=== PATIENT | female | born 1990 | race Caucasian/White ===

== ENCOUNTER → 2018-05-23 16:48 | Outpatient (CLI) | payer OTHER, SELFPAY ==
[2018-05-23 21:18] LABS: Chlamydia Trachomatis by PCR Negative (Negative); Neisserai gonorrhoeae by PCR Negative (Negative); Probe Check PASS; Sample Adequacy Control PASS; Specimen Processing Control PASS
== END ==
PROVIDERS: Visit Provider Obstetrics & Gynecology
DX: Z11.3 Encounter for screening for infections with a predominantly sexual mode of transmission (principal)
CPT/HCPCS: 87491; 87591

== ENCOUNTER 2018-12-09 04:00 | Inpatient (IN) | payer BC, SELFPAY ==
[2018-12-09 03:51] VITALS: BMI 26.4
[2018-12-09] MEDS: 0.9% Saline Lock 10 ML Syringe IV ×2 (04:15→06:55)
[2018-12-09] MEDS: Lactated Ringers 1,000 ML 50 ML IV (04:15)
[2018-12-09 04:39] LABS: Mean Corp Hgb Conc 31.6 g/gl (32-36); Mean Corpuscular Hgb 26.8 pg (27.0-32.0); Mean Platelet Vol. 9.9 fl (6.2-12.0); Platelet Count 182 K/mm3 (150-450); RBC Distribution Width CV 17.8 % (11.6-14.6); RBC Distribution Width SD 55.4 fl (35.1-43.9); Red Blood Count 4.47 M/mm3 (4.2-5.4); Scan Indicated on CBC? Y/N NO; White Blood Count 8.8 K/mm3 (4.4-11.0)
[2018-12-09] MEDS: Oxytocin 30 units/NS 500 ml 30 UNITS/500 ML IV.SOLN 334 UNITS IV (05:23)
--- NOTE | 2018-12-09 05:28 | PCM.OB.VAG ---
Vaginal Delivery Maternal Presentation: Active Labor 39 4/7 wk labor IBOW Amniotic Membrane Rupture Type: Artificial Amniotic Fluid Description: Clear Final CAROLYN: 12/12/18 Final CAROLYN Source: US <20 weeks Gestational age: 39 Weeks and 4 Days Date of Procedure: 12/09/18 Pre-Operative Diagnosis: 39 4/7 wk labor Post-Operative Diagnosis: Same Surgery/ Procedure Performed: Spontaneous Vaginal Delivery Description of Procedure: of a lamas viable female over intact perineum. Head delivered DOROTHY. no nuchal cord Shoulders delivered easily. OP and nares bulb suctioned on abdomen. Short umbical cord noted. Cord clamped x two and cut to allow better skin to skin. Routine cord blood for typing collected. PP exam; 1st deg posterior vaginal laceration, hemostatic. no repair Placenta delivered by spont expulsion, 3v cord, normal appearing and intact with trailing membranes EBL 200 Ray Kai counts correct x two. Presentation: Vertex, DOROTHY Placental Delivery Description: Spontaneous Placenta Disposition: [facility] Cord Vessel Description: 3 Vessels Cord Entanglement: None Estimated Blood Loss: 200 A gender: Female (1 minute): 8 (5 minute): 9 Episiotomy Description: None Laceration: Midline, Vaginal Extension/lac, 1st degree - no repair required Medications given after delivery: IV Pitocin Complications: None
--- NOTE | 2018-12-09 05:33 | PCM.DCVAG ---
Discharge Diet: No Restrictions Discharge Activity: May Shower, May Take a Tub Bath May resume sexual activity in: 4-6 weeks Additional Activity Instructions:: Nothing in the vagina for 4-6 weeks. You may return to work/school in 6 weeks. Additional Instructions: If you experience any of the following, contact your healthcare provider. Bleeding that soaks a pad every hour for 2 hours Fever 100.4 or higher Unrelieved abdominal pain Problems urinating (including inability to urinate or burning while urinating). Visual changes Severe headache Flu-like symptoms Pain or redness in one of both of your breasts Pain, warmth, tenderness or swelling in your legs, especially the calf area Frequent nausea and vomiting Symptoms of depression or anxiety If you experience any of the following, call 911 or go to the nearest Emergency Room. Chest pain Problems breathing Seizure activity Partial or complete paralysis of a body part, slurred speech, weakness or drooping of the face, or a sudden inability to walk or hold your balance Allergies/Adverse Reactions: Allergies pedisol Allergy (Unknown, Uncoded 12/09/18 03:44) Unknown Medications to take at Discharge Levothyroxine [Synthroid] 1 tab PO DAILY 10/12/16 Atenolol 25 mg PO DAILY 12/09/18 Ferrous Sulfate 325 mg PO DAILY 12/09/18 Gummies 2 gum PO DAILY 12/09/18 Please Follow Up With: Mae Alba MD - [phone] When: Call to make an appointment with your doctor in 6 weeks. Test Results: Test results from this visit will be discussed in further detail at your follow-up appointment, if applicable. Proposed Discharge Date: 12/10/18
--- NOTE | 2018-12-09 05:34 | DCINST_ITS ---
Discharge Diet: No Restrictions Discharge Activity: May Shower, May Take a Tub Bath May resume sexual activity in: 4-6 weeks Additional Activity Instructions:: Nothing in the vagina for 4-6 weeks. You may return to work/school in 6 weeks. Additional Instructions: If you experience any of the following, contact your healthcare provider. * Bleeding that soaks a pad every hour for 2 hours * Fever 100.4 or higher * Unrelieved abdominal pain * Problems urinating (including inability to urinate or burning while urinating). * Visual changes * Severe headache * Flu-like symptoms * Pain or redness in one of both of your breasts * Pain, warmth, tenderness or swelling in your legs, especially the calf area * Frequent nausea and vomiting * Symptoms of depression or anxiety If you experience any of the following, call 911 or go to the nearest Emergency Room. * Chest pain * Problems breathing * Seizure activity * Partial or complete paralysis of a body part, slurred speech, weakness or drooping of the face, or a sudden inability to walk or hold your balance Allergies/Adverse Reactions: Allergies pedisol Allergy (Unknown, Uncoded 12/09/18 03:44) Unknown Medications to take at Discharge Levothyroxine [Synthroid] 1 tab PO DAILY 10/12/16 Atenolol 25 mg PO DAILY 12/09/18 Ferrous Sulfate 325 mg PO DAILY 12/09/18 Gummies 2 gum PO DAILY 12/09/18 Please Follow Up With: Mae Alba MD - [phone] When: Call to make an appointment with your doctor in 6 weeks. Test Results: Test results from this visit will be discussed in further detail at your follow- up appointment, if applicable. Proposed Discharge Date: 12/10/18
[2018-12-09] MEDS: Oxytocin 30 units/NS 500 ml 30 UNITS/500 ML IV.SOLN 167 UNITS IV (05:53)
[2018-12-09] MEDS: Levothyroxine 75 MCG Tablet PO (07:15)
[2018-12-09 07:45] VITALS: BP 114/71; PULSE 82; RESP 18; TEMP 36.6; O2SAT 98
[2018-12-09 12:00] VITALS: BP 99/55; PULSE 94; RESP 16; TEMP 37.2; O2SAT 97
[2018-12-09] MEDS: Ibuprofen 600 MG Tablet PO ×2 (13:03→20:33)
[2018-12-09] MEDS: Prenatal Vits Tablet 1 TABLET PO (13:04)
[2018-12-09 16:00] VITALS: BP 113/70; PULSE 84; RESP 18; TEMP 36.6; O2SAT 98
[2018-12-09 20:25] VITALS: BP 105/59; PULSE 95; RESP 18; TEMP 37
[2018-12-09 23:48] VITALS: BP 120/66; PULSE 104; RESP 16; TEMP 36.6; O2SAT 97
[2018-12-10 05:00] VITALS: BP 121/73; PULSE 98; RESP 16; TEMP 36.8
[2018-12-10] MEDS: Levothyroxine 75 MCG Tablet PO (06:27)
[2018-12-10] MEDS: Ibuprofen 600 MG Tablet PO (06:30)
[2018-12-10 07:29] VITALS: BP 119/75; PULSE 102; RESP 16; TEMP 36.9
--- NOTE | 2018-12-10 07:53 | PCM.PN.OB ---
Subjective: PPD#1 GBS neg Doing well. Nursing. would like to go home today. no concerns voiced. Objective: Sitting up in bed, legs crossed and baby on bed. Attempting to wake baby to nurse - Physical Exam General: Alert, Oriented x3, Cooperative, No apparent distress HEENT: Atraumatic, EOMI Neck: Supple Psych/Mental Status: Normal Affect Vital Signs Temp Pulse Resp BP Pulse Ox 98.4 F 102 H 16 119/75 97 12/10/18 07:29 12/10/18 07:29 12/10/18 07:29 12/10/18 07:29 12/09/18 23:48 Oxygen Delivery Method Room Air Weight: 76.657 kg Body Mass Index (BMI) 26.4 Intake and Output for Last 24 Hours 12/08/18 12/09/18 12/10/18 23:59 23:59 23:59 Output Total 1200 / 1200 Balance -1200 / -1200 Medical Necessity - Tobacco Use Smoking Status: Former smoker Assessment/Plan PPD#1 Stable pp. Dischg home per pt request. RTO in 6 wk for pp check, prn sooner.
--- NOTE | 2018-12-14 17:02 | NURSING ---
Voicemail left with Alyson and encouraged to call us if she has any concerns, or questions or if we can help her in anyway. Sheri TAVERAS
== END 2018-12-10 10:25 | disposition home or self-care (01) | DRG 807 ==
LOC: WPOUT 04:22 → WP 04:22
PROVIDERS: Admitting Provider Obstetrics & Gynecology; Referring Provider Obstetrics & Gynecology; Visit Provider Obstetrics & Gynecology
DX: O99.284 Endocrine, nutritional and metabolic diseases complicating childbirth (principal); E03.9 Hypothyroidism, unspecified; O70.0 First degree perineal laceration during delivery; Z87.891 Personal history of nicotine dependence; Z3A.39 39 weeks gestation of pregnancy; Z79.899 Other long term (current) drug therapy; Z37.0 Single live birth
CPT/HCPCS: 59025; 59050; 85027; 86850; 86900; 99218; J7120; A4216; G0378

== ENCOUNTER 2022-10-20 23:06 | Inpatient (IN) | payer OTHER, SELFPAY ==
[2022-10-20 23:07] VITALS: BP 140/77; PULSE 99; RESP 16; TEMP 36.7; O2SAT 100; BMI 18.8
--- NOTE | 2022-10-20 23:48 | EX.ED.DYSGE1 ---
HPI History of Present Illness Chief Complaint: Abn Labs Detail of Chief Complaint: Sent in for low blood count. Informant: patient Onset/Context/Timing Onset: Weeks Context: Gradual Onset Timing: Continuous Current Severity: Mild Maximum Severity: Mild Narrative Narrative: 32-year-old female history of hypothyroidism. Last several weeks has had fatigue and just feeling tired. Today she had outpatient labs reportedly showing a hemoglobin of 5.7. She was sent to the ER for further evaluation. She has had anemia when she is before was placed on iron. Never needed blood transfusion. Never been anywhere near this low. She denies any bloody noses. She denies any melena. She denies any hematemesis. She denies any easy bruising. Denies any significant abnormal menstrual periods. Prior similar symptoms: No Recent Illness/Hospitalization: No PFSH PFSH Medical History Hypothyroid Home Medications levothyroxine 112 mcg tablet 112 mcg PO DAILY #90 tabs 06/01/22 [Rx Last Taken Unknown] Allergy/AdvReac Type Severity Reaction Status Date / Time pedisol Allergy Unknown Unknown Uncoded 10/20/22 23:09 Social History Smoking Status: Former smoker ROS ROS ED ROS Narrative Fatigue. Review of Systems ROS Unobtainable: Denies due to encephalopathy Constitutional Constitutional ED: Denies chills or fever(s) Eyes Eyes: Denies blurry vision ENT ENT ED: Denies ear pain Cardiovascular Cardiovascular: Denies chest pain or palpitations Respiratory/Chest Respiratory/Chest: Denies cough or dyspnea Gastrointestinal Gastrointestinal: Denies abdominal pain Genitourinary Genitourinary ED: Denies dysuria or hematuria Musculoskeletal Musculoskeletal: Denies arthralgias Integumentary Denies abscess Neurologic Neurologic: Denies headache(s) Psychiatric Psychiatric: Denies anxiety Endocrine Endocrinology: Denies cold intolerance Hematologic/Lymphatic Hematologic/Lymphatic: Reports none Allergic/Immunologic Allergic/Immunologic ED: Denies mouth swelling or tongue swelling EXAM Physical Exam Narrative Exam Narrative: 32-year-old female no acute distress. Vital signs stable afebrile. H EENT exam unremarkable. Neck nontender no JVD. No lymphadenopathy. Lungs clear to auscultation bilaterally. Heart regular rhythm rate about 99 no murmur. Abdomen soft nontender no bowel sounds no peritoneal signs. Moving all 4 extremities. Calves are nontender without edema or cords. Neurologically she is awake and alert with no focal motor deficits. Clinically she looks well. Const Vital Signs: 10/20/22 23:07 10/20/22 23:20 Temperature 98.1 F Temperature Source Temporal Pulse Rate 99 Respiratory Rate 16 Respiratory Effort Normal Non-Labored Respiratory Pattern Normal Blood Pressure 140/77 H Blood Pressure Mean 98 Pulse Ox 100 Oxygen Delivery Method Room Air Positive well nourished and well developed; Negative for obese, cachectic, contractures or unkempt General Appearance ED: well developed and NAD; Negative for unkempt, cachectic, contractures, cyanotic or diaphoretic Nutritional Appearance: Negative for cachectic or obese HEENT Reports moist mucous membranes Negative for trauma or tenderness Eyes PERRL and EOMs intact bilaterally General Eye ED: Negative for pale conjunctiva or scleral icterus Neck no lymphadenopathy, supple and no JVD General: Negative for tenderness Lymph Lymphatic: Negative for other Chest Wall inspection of chest normal and palpation of chest normal Chest: Negative for other Resp normal respiratory effort and clear to auscultation bilaterally Effort and Inspection: Negative for retractions Auscultation: Negative for rales, rhonchi or wheezes Cardio regular rate, regular rhythm, S1 normal heart sound, S2 normal heart sound and no murmurs Rate: Negative for bradycardia or tachycardic Rhythm: Negative for abnormal rhythm GI normal to inspection, nondistended, normoactive bowel sounds, non-tender, non-distended, hepatosplenomegaly and no masses Inspection: Negative for abdominal distention Auscultation: normoactive bowel sounds Palpation: soft; Negative for tender, guarding, splenomegaly or mass Back/Spine no CVA tenderness General Back: Negative for CVA tenderness Cervical Spine: Negative for cervical spine tenderness Thoracic Spine / Upper Back: Negative for thoracic spinal tenderness Lumbar Spine / Lower Back: Negative for lumbar spinal tenderness Extremity normal to inspection General Extremety ED: Negative for edema or tenderness General Extremity: Negative for edema Neuro oriented x3, CN's II-XII intact bilaterally and no sensory deficits noted Sensorium / Orientation: alert; Negative for orientation impaired, lethargic or stuporous Motor Exam: strength 5/5 throughout; Negative for general weakness or strength abnormal Psych mental status grossly normal Appearance: Negative for unkempt Attitude: No agitated Mood & Affect: Negative for depressed, anxious or tearful Skin no rashes or lesions noted, no wounds and skin turgor normal General Skin Exam: elasticity normal; Negative for jaundice Lesions: No lesion noted Rashes: No rashes noted Trauma: Negative for abrasion Wounds: Negative for wounds noted MDM MDM MDM Narrative Medical decision making narrative: 32-year-old female with reportedly new onset anemia today with a blood count of 5.7 as an outpatient lab. That will be rechecked. If accurate she has been typed and crossed for 2 units of be transfused. Repeat exam unchanged. Patient has been typed and crossed for 2 units which will be ordered to be transfused. I spoke with the overnight hospitalist. Patient will be admitted to him to the progressive care unit. Currently she is stable and resting comfortably. I discussed with her test results. Lab Data Attestation: I reviewed the patient's lab results. Lab results narrative: CBC shows a white count of 3.2 H&H of 5.4 and 22.6 consistent with her labs from earlier today. Platelet count is normal at 210. Electrolytes potassium 3.1. Gap of 5 normal BUN and creatinine. Glucose 113. Labs: Laboratory Results - last 24 hr 10/20/22 10/20/22 10/21/22 22:30 22:30 00:05 WBC 3.2 L RBC 3.63 L Hgb 5.4 L* Hct 22.6 L MCV 62.3 L MCH 14.9 L MCHC 23.9 L RDW Std Deviation 44.4 H RDW Coeff of Dann 20.2 H Plt Count 210 MPV 9.5 Sodium 142 Potassium 3.1 L Chloride 108 H Carbon Dioxide 29.0 Anion Gap 5 BUN 7 Creatinine 0.65 Estim Creat Clear Calc 104.79 Est GFR (MDRD) Af Amer 133 Est GFR (MDRD) Non-Af 110 BUN/Creatinine Ratio 10.7 Glucose 113 H Calcium 8.8 Crossmatch See Detail Discharge Plan Dx/Rx/DC Orders Clinical Impression: Anemia, Anemia requiring transfusions Disposition Disposition: [facility]
[2022-10-21] VITALS (20 sets, daily range): BP systolic 110–135; BP diastolic 49–88; PULSE 82–117; RESP 16–18; TEMP 36.4–37.2; O2SAT 98–100; BMI 19.1
--- NOTE | 2022-10-21 00:11 | PCM.HP.STD ---
HPI - General General Date of Admission: 10/21/22 Date of Service: 10/21/22 Chief Complaint: Anemia on outpatient lab HPI Narrative NANCY REILLY, is a 32 F with a significant history of hypothyroidism who presents to the emergency department with anemia on outpatient lab. Patient has been steadily fatigue for about 2 weeks. She attributed her fatigue to helping her sick father; and possibly secondary to her thyroid disease. She went to see her PCP who did outpatient lab including TSH and CBC. Because her hemoglobin level was 5.7 she was sent to the emergency department. She denied any visible bloody discharge. Her stools are normal color of brown. She report that her last menstrual cycle was a little bit longer. It was 6 to 7 days instead of her usual 4 to 5 days. However she did not have more heavy daily bleeding. Her last menses was on October 05, 2022. She denies anorexia. [facility] Medical History Hypothyroid Home Medications levothyroxine 112 mcg tablet 112 mcg PO DAILY #90 tabs 06/01/22 [Rx Last Taken Unknown] Allergy/AdvReac Type Severity Reaction Status Date / Time pedisol Allergy Unknown Unknown Uncoded 10/20/22 23:09 Family History (Updated 10/21/22 @ 00:[address] Joby Helms MD) Other Colon cancer Depression Diabetes Surgical History no surgical history no surgical history Social History Smoking Status: Former smoker ROS ROS Narrative Pertinent positives and pertinent negatives as noted in HPI. All other systems were reviewed and are negative Vital Signs Vital Signs Vital Signs: 10/20/22 23:07 10/20/22 23:20 Temperature 98.1 F Temperature Source Temporal Pulse Rate 99 Respiratory Rate 16 Respiratory Effort Normal Non-Labored Respiratory Pattern Normal Blood Pressure 140/77 H Blood Pressure Mean 98 Pulse Ox 100 Oxygen Delivery Method Room Air Weight Weight: 54.431 kg Body Mass Index (BMI) 18.8 Physical Exam Narrative Physical exam: General: Well-nourished, well-developed. Head: Normocephalic, atraumatic, no tenderness Eyes: Vision is grossly intact. EOMI ENT, no trauma, moist mucous membranes, no rhinorrhea Neck: Nontender, No thyromegaly. CVS: Tachycardia. S1-S2 present. No murmur, gallop or rub. Respiratory : clear to auscultation bilaterally, chest wall nontender, no wheezing Abdomen: Soft, nontender, nondistended, normal bowel sounds, no masses : Deferred Back: Nontender, no CVA tenderness. Extremities: Nontender full range of motion, no trauma Skin: Normal color, no trauma, abrasions Neuro: Alert, oriented, cranial nerves II through XII grossly intact. Psychiatry: Normal mood. Normal affect. Not depressed. Not anxious. Results Lab / Micro Data Result Diagrams: 10/20/22 22:30 10/20/22 22:30 Assessment & Plan Assessment/Plan (1) Anemia: (2) Hypothyroidism: PLAN: Plan Anemia Etiology is unknown at this time. Iron studies, vitamin B12, folate level, reticulocyte ordered 2 units ordered to be transfused at the emergency department. Repeat H&H 1 hour after transfusion. Gastroenterology consult was offered while inpatient. However patient want to see Dr. Womack, vitamin manager outpatient. Okay to transfuse blood and if patient is stable can be discharged to see Dr. Womack for further work-up. Hypothyroidism TSH in outpatient lab was 0.18. Patient symptomatology is likely secondary to anemia which most likely is not from her low TSH. Patient is well-established with PCP who ordered test and will follow up . DVT prophylaxis: Low risk. Encourage to ambulate. Charges/Coding Visit Charges Inpatient E&M: 69366 Init Hosp L2
[2022-10-21 00:15] LABS: Anion Gap 5 (5-15); BUN 7 mg/dL (7-18); BUN/Creat Ratio 10.7 RATIO (10-20); Calcium,Total 8.8 mg/dL (8.5-10.1); Chloride 108 mmol/L (98-107); Creatinine, Serum 0.65 mg/dL (0.55-1.02); EST Glomerular Filtration Rate 110 mL/min (>60); Est Glom Filt Rate - Afr Amer 133 mL/min (>60); Estimated Creatinine Clearance 104.79 ml/min; Glucose 113 mg/dL (74-106); Potassium 3.1 mmol/L (3.5-5.1); Sodium Level 142 mmol/L (136-145)
[2022-10-21 00:20] LABS: Hematocrit 22.6 % (37-47); Hemoglobin 5.4 g/dL (12.0-15.0); Mean Corp Hgb Conc 23.9 g/dL (32-36); Mean Corpuscular Hgb 14.9 pg (27.0-32.0); Mean Corpuscular Volume 62.3 fL (81-99); Mean Platelet Vol. 9.5 fl (6.2-12.0); POSITIVE COUNT YES; POSITIVE MORPHOLOGY YES; Platelet Count 210 K/mm3 (150-450); RBC Distribution Width CV 20.2 % (11.6-14.6); RBC Distribution Width SD 44.4 fl (35.1-43.9); Red Blood Count 3.63 M/mm3 (4.2-5.4); Scan Indicated on CBC? Y/N YES- FLAGS NOTED; White Blood Count 3.2 K/mm3 (4.4-11.0)
[2022-10-21 00:31] LABS: Immature Platelet Fraction 2.9 % (1.0-7.9); Platelet Count 209 K/mm3 (150-450); RET-HE 13.5 pg (30-35); Reticulocyte Count 0.85 % (0.5-1.5)
[2022-10-21 00:33] LABS: International Normalized Ratio 1.1
[2022-10-21 00:40] LABS: Differential Comment SCANNED
[2022-10-21 01:01] LABS: Iron 10 ug/dL (50-170); Iron Binding Capacity,Total 563 ug/dL (250-450); LDH 151 U/L (84-246); PERCENT IRON SATURATION 1.8 % (15.0-55.0)
[2022-10-21 03:13] LABS: Vitamin B12 210 pg/mL (211-911)
[2022-10-21] MEDS: 0.9% Saline Lock 10 ML Syringe IV ×2 (07:30→13:04)
--- NOTE | 2022-10-21 07:54 | PCM.PN.HOSP ---
Subjective Subjective Complains of pain. Requesting the B12 injection be given to her p.o. because she does not like needles. Denies any hematochezia and or melena. States that her periods are regular and not overtly heavy though her last period was around 6 days compared to her typical 4 days. Objective Data Objective Data Vital Signs: Vital Signs Temp Pulse Resp BP Pulse Ox O2 Del Method 37.0 C 91 17 126/69 H 100 Room Air 10/21/22 07:28 10/21/22 07:28 10/21/22 07:28 10/21/22 07:28 10/21/22 07:28 10/21/22 07:28 Oxygen Delivery Method Room Air Weight: 55.2 kg Body Mass Index (BMI) 19.1 Intake & Output: Intake and Output for Last 24 Hours 10/19/22 10/20/22 10/21/22 23:59 23:59 23:59 Intake Total 800 / 800 Balance 800 / 800 Lab / Micro Data Result Diagrams: 10/21/22 08:49 10/20/22 22:30 Labs: Laboratory Results - last 24 hr 10/20/22 22:30: WBC 3.2 L, RBC 3.63 L, Hgb 5.4 L*, Hct 22.6 L, MCV 62.3 L, MCH 14.9 L, MCHC 23.9 L, RDW Std Deviation 44.4 H, RDW Coeff of Dann 20.2 H, Plt Count 210, MPV 9.5, Differential Comment SCANNED, Diff Path Review March10/20/22 22:30: Sodium 142, Potassium 3.1 L, Chloride 108 H, Carbon Dioxide 29.0, Anion Gap 5, BUN 7, Creatinine 0.65, Estim Creat Clear Calc 104.79, Est GFR (MDRD) Af Amer 133, Est GFR (MDRD) Non-Af 110, BUN/Creatinine Ratio 10.7, Glucose 113 H, Calcium 8.8 10/20/22 22:30: Immature Plt Fraction 2.9, Retic Count 0.85, Immature Retic Fraction 5.90, Retic Hgb Equivalent 13.5 L 10/20/22 22:30: Iron 10 L, TIBC 563 H, Iron Saturation 1.8 L, Lactate Dehydrogenase 151, Folate 19.30 10/20/22 22:30: PT 14.0, INR 1.1 10/21/22 00:05: Blood Type O POSITIVE, Antibody Screen NEGATIVE, Crossmatch See Detail 10/21/22 00:55: Vitamin B12 210 L Physical Exam Const alert and no apparent distress Resp normal respiratory effort, no retractions, no use of accessory muscles and clear to auscultation bilaterally Cardio regular rate, regular rhythm, S1 normal heart sound and S2 normal heart sound GI normal to inspection, nondistended, normoactive bowel sounds, soft to palpation, non-tender and non-distended Extremity normal to inspection Assessment & Plan Assessment/Plan (1) Anemia: PLAN: Improved after transfusion of 2 units packed red blood cell microcytic anemia Etiology is unknown at this time. Iron low at 10. We will give IV iron. Patient will be on oral iron upon discharge. B12 low will give 1000 mcg of B12, patient requesting to be give p.o. rather than IM. Patient now agreeable to seeing gastroenterology here. Will place consult to GI. (2) Hypothyroidism: PLAN: Hypothyroidism TSH in outpatient lab was 0.18. Free T4 was 1.34 which is normal. Continue with the levothyroxine at the current dose. PLAN: Plan DVT prophylaxis: Low risk. Encourage to ambulate. Discussed with the patient about performing endoscopy inpatient versus outpatient. I told her that likely the anemia has been chronic and not acute as she is fairly asymptomatic other than some general fatigue. If she would wish to do it outpatient would likely be more protracted perhaps lasting weeks to months. I did encourage her to have it done while she was here. She and her discussed and eventually agreed to have it done here. Charges/Coding Visit Charges Inpatient E&M: 24419 Subs Hosp L2
[2022-10-21 08:59] LABS: Hematocrit 32.3 % (37-47); Hemoglobin 8.7 g/dL (12.0-15.0)
[2022-10-21 09:04] LABS: T4 Free Direct 1.34 ng/dL (0.76-1.46)
--- NOTE | 2022-10-21 11:40 | CASEMGMT ---
NITIN HELLER assessment: Face to Face with patient for initial transition planning/care coordination assessment. NITIN HELLER introduced self and role at [facility], pt voices understanding and consents to assessment. Pt is lying on abd in bed in no distress on room air. Pt is A/Ox 4 and answers all questions appropriately. Pt's is at bedside during assessment.? Care providers, pharmacy,?and demographics verified. ? Presentation: Pt sent from PCP for low Hgb Admitting dx: Anemia PCP: Rishi Specialists: None Preferred [facility]acy: [facility] Insurance: [employer] Prescription Benefit:? [employer] Living Will/HPOA: Pt does not have LW/HPOA and declines AD info. LNOK: Terell Blackwell, ; aDvid Glass, father Living Arrangements: Pt lives with in home and states no concerns at home. Pt is independent with ADL's. Transportation: Pt drives self and states no transportation concerns. DME/HHC: Pt states no current DME or need for any DME. Pt states no hx of HHC or SNF. Pt states no concerns with going home at time of discharge. Pt works multimedia technician. Pt states does not smoke cigarettes but does occasionally drink ETOH. Pt voices no further concerns/needs. CM to follow for any further discharge planning/needs. Advised pt to ask for CM if any further questions/concerns/needs arise, voices understanding. Pt Goal: Home ? Plan: [place] NITIN HELLER
[2022-10-21] MEDS: Acetaminophen 500 MG Tablet 1000 MG PO (11:49)
[2022-10-21] MEDS: Potassium Chloride 10mEq/100mL 10 MEQ/100 ML IV.SOLN. 100 MEQ IV BOLUS (11:51)
--- NOTE | 2022-10-21 12:49 | NURSING ---
Pt's mother called in asking about visiting hours; pt's mother is not on contact list and patient does not want mother to know she is here. Per pt, whe requested for a password to be placed in computer, but there was not one in computer. Password was added and pt removed from directory per pt request.
[2022-10-21] MEDS: Potassium Chloride Oral Tablet 20 MEQ 40 MEQ PO (13:04)
[2022-10-21] MEDS: Bisacodyl 5 MG Tablet 20 MG PO (20:02)
[2022-10-21] MEDS: Electrolyte Solution/Peg's 4000 ML PO (20:28)
[2022-10-22] VITALS (11 sets, daily range): BP systolic 106–126; BP diastolic 58–89; PULSE 69–92; RESP 16–18; TEMP 36.6–37.7; O2SAT 99–100; BMI 19.1
--- NOTE | 2022-10-22 | EGD_PTH ---
PATIENT: NANCY REILLY LOC: [facility] U#:[id number] AGE/SX: 32/F ROOM: [facility] RE10/21/[address]: Dr. Harvinder Meng DO : 1990 BED: 1 DIS: 10/22/2022 SPEC #: [id number] RECD: 10/22/22 14:39 STATUS: CHRISTIAN REGera #: [id number] JOAO: 10/22/22 00:[address]: Ra Sukhjinderhsaan DEPT: SURGICAL PATHOLOGY RECD BY: Sancho Barnes ENTERED: 10/25/22 10:31 SP TYPE: EGD BIOPSY OTHR DR: DO Dr. Joby Graham MD Dora Richardson, PAD EXTRACTOR TENDER-C Tissues: A - Duodenum, NOS B - Ileum, NOS Procedures: Surgery Specimen Level IV Comments: @ Ordering doctor for SUIV edited from to @ by MINA at 10/25/22 141 @ Submitting doctor edited from to @ by MICHOD at 10/25/22 1417 HEADER OPERATION: Colonoscopy, EGD ([facility] [place]) and biopsy PRE-OP DIAGNOSIS: Anemia, hypothyroidism TISSUE SUBMITTED: A ? Duodenum biopsy, B ? Terminal ileum MICROSCOPIC DIAGNOSIS A. Duodenum, biopsy: Fragments of duodenal mucosa, no pathologic diagnosis. B. Terminal ileum, biopsy: Fragments of small intestinal mucosa, no pathologic diagnosis. ADRIANNE:regina 10/26/2022 MICROSCOPIC DESCRIPTION Slides are reviewed. GROSS DESCRIPTION A - Received in fixative is one container labeled with the patient's name and designated duodenal biopsy. The specimen consists of multiple irregular fragments of light hazel soft tissue that in aggregate measure 1 x 0.7 x 0.1 cm. The specimen is totally submitted in one cassette. B - Received in fixative is one container labeled with the patient's name and designated terminal ileum biopsy. The specimen consists of multiple irregular fragments of light hazel soft tissue that in aggregate measure 1 x 0.4 x 0.1 cm. The specimen is totally submitted in one cassette. / Nisa 10/25/2022 TC:4 CPT: 93166 x2
[2022-10-22 05:55] LABS: Absolute Lymphocyte Count 1.08 X10^3/uL (0.83-4.51); Absolute Neutrophil Count 1.7 X10^3/uL (2.0-7.7); Basophil# 0.03 X10^3/uL; Basophil% 0.9 % (0-1); Eosinophil# 0.09 X10^3/uL; Eosinophils% 2.6 % (0-5); Hematocrit 33.3 % (37-47); Hemoglobin 9.4 g/dL (12.0-15.0); Lymphocyte # 1.08 X10^3/ul (0.83-4.51); Lymphocyte % 31.5 % (19-41); Mean Corp Hgb Conc 28.2 g/dL (32-36); Mean Corpuscular Hgb 19.3 pg (27.0-32.0); Mean Corpuscular Volume 68.2 fL (81-99); Mean Platelet Vol. 9.6 fl (6.2-12.0); Monocyte% 14.6 % (0-10); NRBC Flagged by Analyzer 0 % (0-5); Neutrophil # 1.72 X10^3/uL (2.7-7.7); Neutrophil % 50.1 % (47-70); POSITIVE MORPHOLOGY YES; Platelet Count 212 K/mm3 (150-450); RBC Distribution Width SD 59.6 fl (35.1-43.9); Red Blood Count 4.88 M/mm3 (4.2-5.4); White Blood Count 3.4 K/mm3 (4.4-11.0)
[2022-10-22 06:05] LABS: Differential Indicated SCAN CRITERIA MET
[2022-10-22 06:19] LABS: International Normalized Ratio 1.2; Prothrombin Time (Protime)PT. 15.1 SECONDS (11.7-14.9)
[2022-10-22 06:19] LABS: Internal QC Validated? YES +Cl - CLEAR BKGD; Pregnancy, Urine Negative Negative
[2022-10-22 06:20] LABS: Partial Thromboplast Time 36.5 Seconds (24.1-36.2)
[2022-10-22 06:26] LABS: Anion Gap 5 (5-15); BUN 9 mg/dL (7-18); BUN/Creat Ratio 13.4 RATIO (10-20); Calcium,Total 9.5 mg/dL (8.5-10.1); Chloride 108 mmol/L (98-107); Creatinine, Serum 0.67 mg/dL (0.55-1.02); EST Glomerular Filtration Rate 106 mL/min (>60); Est Glom Filt Rate - Afr Amer 128 mL/min (>60); Glucose 97 mg/dL (74-106); Magnesium 2.5 mg/dL (1.6-2.6); Potassium 3.3 mmol/L (3.5-5.1); Sodium Level 140 mmol/L (136-145); Thyroid Stim Hormone (TSH) 1.19 uIU/mL (0.358-3.74)
[2022-10-22 06:43] LABS: Anisocytosis 2+; Differential Comment SCANNED; Microcytosis 2+
--- NOTE | 2022-10-22 08:29 | PN.HOSP_ITS ---
Subjective Subjective Does not feel well she has not slept much in the past few days. Objective Data Objective Data Vital Signs: Vital Signs Temp Pulse Resp BP Pulse Ox O2 Del Method 36.9 C 78 16 123/73 H 99 Room Air 10/22/22 06:30 10/22/22 07:00 10/22/22 06:30 10/22/22 06:30 10/22/22 06:30 10/22/22 06:50 Oxygen Delivery Method Room Air Weight: 55.2 kg Body Mass Index (BMI) 19.1 Intake & Output: Intake and Output for Last 24 Hours 10/20/22 10/21/22 10/22/22 23:59 23:59 23:59 Intake Total Balance Lab / Micro Data Result Diagrams: 10/22/22 05:30 10/22/22 05:30 Labs: Laboratory Results - last 24 hr 10/21/22 00:55: Free T4 1.34 10/21/22 08:49: Hgb 8.7 L, Hct 32.3 L 10/22/22 01:15: Urine Test Negative 10/22/22 05:30: WBC 3.4 L, RBC 4.88, Hgb 9.4 L, Hct 33.3 L, MCV 68.2 L D, MCH 19.3 L, MCHC 28.2 L D, RDW Std Deviation 59.6 H, RDW Coeff of Dann 25.0 H, Plt Count 212, MPV 9.6, Immature Gran % (Auto) 0.300, Neut % (Auto) 50.1, Lymph % (Auto) 31.5, [place] % (Auto) 14.6 H, Eos % (Auto) 2.6, Baso % (Auto) 0.9, Absolute Neuts (auto) 1.7 L, Absolute Lymphs (auto) 1.08, Nucleated RBC % 0, Differential Comment SCANNED, Anisocytosis 2+, Microcytosis 2+ 10/22/22 05:30: Sodium 140, Potassium 3.3 L, Chloride 108 H, Carbon Dioxide 27.0, Anion Gap 5, BUN 9, Creatinine 0.67, Estim Creat Clear Calc 103.10, Est GFR (MDRD) Af Amer 128, Est GFR (MDRD) Non-Af 106, BUN/Creatinine Ratio 13.4, Glucose 97, Calcium 9.5, Magnesium 2.5, TSH 1.19 10/22/22 05:30: PT 15.1 H, INR 1.2, APTT 36.5 H Physical Exam Const alert and no apparent distress HEENT head/scalp atraumatic and moist oral mucous membranes Resp normal respiratory effort, no retractions, no use of accessory muscles and clear to auscultation bilaterally Cardio regular rate, regular rhythm, S1 normal heart sound and S2 normal heart sound Psych Psych Narrative: Flat affect Assessment & Plan Assessment/Plan (1) Anemia: QUALIFIERS: Anemia type: iron deficiency Iron deficiency anemia type: chronic blood loss Qualified Code(s): D50.0 - Iron deficiency anemia secondary to blood loss (chronic) PLAN: Improved after transfusion of 2 units packed red blood cell microcytic anemia Etiology is unknown at this time. Iron low at 10. We will give IV iron. Patient will be on oral iron upon discharge. B12 low will give 1000 mcg of B12, patient requesting to be give p.o. rather than IM. EGD and colonoscopy were unremarkable there was concern of possible celiac disease. Biopsies performed. May benefit from capsule endoscopy but they will be performed as outpatient. Patient need to follow-up with gastroenterology. Continue with ferrous sulfate and B12 replacements (2) Hypothyroidism: PLAN: Hypothyroidism TSH in outpatient lab was 0.18. Free T4 was 1.34 which is normal. Continue with the levothyroxine at the current dose. PLAN: Plan DVT prophylaxis: Low risk. Encourage to ambulate. 10/21: Discussed with the patient about performing endoscopy inpatient versus outpatient. I told her that likely the anemia has been chronic and not acute as she is fairly asymptomatic other than some general fatigue. If she would wish to do it outpatient would likely be more protracted perhaps lasting weeks to months. I did encourage her to have it done while she was here. She and her discussed and eventually agreed to have it done here.
[2022-10-22 09:37] LABS: Pathologist Review Reviewed
[2022-10-22] MEDS: Lactated Ringers 1,000 ML 15 ML IV (10:29)
--- NOTE | 2022-10-22 11:58 | OP.EGD_ITS ---
Patient Name: Alyson Blackwell Procedure Date: 10/22/2022 10:49 AM Date of : 1990 Age: 32 Procedure: Upper GI endoscopy Indications: Iron deficiency anemia Providers: Ritesh Slaughter DO Medicines: Monitored Anesthesia Care Patient Profile: This is a 32 year old female. Refer to note in patient chart for documentation of history and physical. Patient has symptoms of chronic dyspepsia and chronic nausea. Complications: No immediate complications. Procedure: Pre-Anesthesia Assessment: - Prior to the procedure, a History and Physical was performed, and patient medications and allergies were reviewed. The patient is competent. The risks and benefits of the procedure and the sedation options and risks were discussed with the patient. All questions were answered and informed consent was obtained. Patient identification and proposed procedure were verified by the physician in the pre-procedure area. Mental Status Examination: alert and oriented. Airway Examination: normal oropharyngeal airway and neck mobility. Respiratory Examination: clear to auscultation. CV Examination: normal. Prophylactic Antibiotics: The patient does not require prophylactic antibiotics. Prior Anticoagulants: The patient has taken no previous anticoagulant or antiplatelet agents. ASA Grade Assessment: II - A patient with mild systemic disease. After reviewing the risks and benefits, the patient was deemed in satisfactory condition to undergo the procedure. The anesthesia plan was to use monitored anesthesia care (MAC). Immediately prior to administration of medications, the patient was re-assessed for adequacy to receive sedatives. The heart rate, respiratory rate, oxygen saturations, blood pressure, adequacy of pulmonary ventilation, and response to care were monitored throughout the procedure. The physical status of the patient was re-assessed after the procedure. After obtaining informed consent, the endoscope was passed under direct vision. Throughout the procedure, the patient's blood pressure, pulse, and oxygen saturations were monitored continuously. The Colonoscope was introduced through the mouth, and advanced to the second part of duodenum. The upper GI endoscopy was accomplished without difficulty. The patient tolerated the procedure well. Scope In: 11:10:32 AM Scope Out: 11:15:26 AM Total Procedure Duration Time 0 hours 4 minutes 54 seconds Findings: The examined esophagus was normal. The entire examined stomach was normal. Localized mucosal flattening was found in the duodenal bulb, in the first portion of the duodenum and in the second portion of the duodenum. Biopsies were taken with a cold forceps for histology. Verification of patient identification for the specimen was done. Estimated blood loss was minimal. Impression: - Normal esophagus. - Normal stomach. - Flattened mucosa was found in the duodenum, suspicious for celiac disease. Biopsied. Recommendation: - Discharge patient to home. - Resume previous diet. - Continue present medications. - Await pathology results. Procedure Code(s): --- Professional --- 33981, Esophagogastroduodenoscopy, flexible, transoral; with biopsy, single or multiple CPT copyright 2017 [employer]. All rights reserved. The codes documented in this report are preliminary and upon business continuity consultant review may be revised to meet current compliance requirements. Ritesh Slaughter DO 10/22/2022 11:58:27 AM This report has been signed electronically. Number of Addenda: 0 Note Initiated On: 10/22/2022 10:49 AM
--- NOTE | 2022-10-22 11:59 | OP.CCLET_ITS ---
10/22/2022 Reina Blackwell NP [facility] [address] [address] Re : Upper GI endoscopy procedure for Alyson Blackwell Dear Ms. Blackwell This procedure was performed on Saturday, October 22, 2022. My impressions and recommendations are as follows: Impressions : - Normal esophagus. - Normal stomach. - Flattened mucosa was found in the duodenum, suspicious for celiac disease. Biopsied. Recommendations : - Discharge patient to home. - Resume previous diet. - Continue present medications. - Await pathology results. My findings are described in the full procedure note, which is enclosed. If I can be of further assistance, please feel free to contact me at . Sincerely, Ritesh Slaughter, 10/22/2022 11:58:27 AM This report has been signed electronically.
--- NOTE | 2022-10-22 12:04 | OP.COLON_ITS ---
Patient Name: Alyson Blackwell Procedure Date: 10/22/2022 11:15 AM Date of : 1990 Age: 32 Procedure: Colonoscopy Indications: Iron deficiency anemia Providers: Ritesh Slaughter DO Medicines: Monitored Anesthesia Care Patient Profile: This is a 32 year old female. Refer to note in patient chart for documentation of history and physical. Patient has symptoms of chronic dyspepsia and chronic nausea. This is a 32 year old female. Refer to note in patient chart for documentation of history and physical. Last Colonoscopy: none. The patient's first colonoscopy is today. Complications: No immediate complications. Procedure: Pre-Anesthesia Assessment: - Prior to the procedure, a History and Physical was performed, and patient medications and allergies were reviewed. The patient is competent. The risks and benefits of the procedure and the sedation options and risks were discussed with the patient. All questions were answered and informed consent was obtained. Patient identification and proposed procedure were verified by the physician in the pre-procedure area. Mental Status Examination: alert and oriented. Airway Examination: normal oropharyngeal airway and neck mobility. Respiratory Examination: clear to auscultation. CV Examination: normal. Prophylactic Antibiotics: The patient does not require prophylactic antibiotics. Prior Anticoagulants: The patient has taken no previous anticoagulant or antiplatelet agents. ASA Grade Assessment: II - A patient with mild systemic disease. After reviewing the risks and benefits, the patient was deemed in satisfactory condition to undergo the procedure. The anesthesia plan was to use monitored anesthesia care (MAC). Immediately prior to administration of medications, the patient was re-assessed for adequacy to receive sedatives. The heart rate, respiratory rate, oxygen saturations, blood pressure, adequacy of pulmonary ventilation, and response to care were monitored throughout the procedure. The physical status of the patient was re-assessed after the procedure. After I obtained informed consent, the scope was passed under direct vision. Throughout the procedure, the patient's blood pressure, pulse, and oxygen saturations were monitored continuously. The Colonoscope was introduced through the anus and advanced to the terminal ileum. The colonoscopy was performed without difficulty. The patient tolerated the procedure well. The quality of the bowel preparation was good. Scope In: 11:17:36 AM Scope Withdrawal Time 0 hours 9 minutes 29 seconds Scope Out: 11:35:31 AM Total Procedure Duration Time 0 hours 17 minutes 55 seconds Findings: The perianal and digital rectal examinations were normal. The colon (entire examined portion) appeared normal. A patchy area of the distal ileum was congested. Biopsies were taken with a cold forceps for histology. Verification of patient identification for the specimen was done. Estimated blood loss was minimal. Impression: - The entire examined colon is normal. - Congested mucosa in the distal ileum. Biopsied. Recommendation: - Discharge patient to home. - Resume previous diet. - Continue present medications. - Await pathology results. - Repeat colonoscopy in 5 years for surveillance. Procedure Code(s): --- Professional --- 13604, Colonoscopy, flexible; with biopsy, single or multiple CPT copyright 2017 [employer]. All rights reserved. The codes documented in this report are preliminary and upon trolley wire installer review may be revised to meet current compliance requirements. Ritesh Slaughter DO 10/22/2022 12:04:14 PM This report has been signed electronically. Number of Addenda: 0 Note Initiated On: 10/22/2022 11:15 AM
--- NOTE | 2022-10-22 12:05 | OP.CCLET_ITS ---
10/22/2022 Reina Blackwell NP [facility] [address] [place] [id number] Re : Colonoscopy procedure for Alyson Blackwell Dear Ms. Blackwell This procedure was performed on Saturday, October 22, 2022. My impressions and recommendations are as follows: Impressions : - The entire examined colon is normal. - Congested mucosa in the distal ileum. Biopsied. Recommendations : - Discharge patient to home. - Resume previous diet. - Continue present medications. - Await pathology results. - Repeat colonoscopy in 5 years for surveillance. My findings are described in the full procedure note, which is enclosed. If I can be of further assistance, please feel free to contact me at . Sincerely, Ritesh Slaughter, 10/22/2022 12:04:14 PM This report has been signed electronically.
[2022-10-22 13:48] LABS: Haptoglobin 90 mg/dL (33-278)
[2022-10-22] MEDS: Cyanocobalamin 500 MCG Tablet 1000 MCG PO (13:55)
--- NOTE | 2022-10-22 14:46 | DCINST_ITS ---
Discharge Instructions Diet Discharge Diet: No restrictions Follow Up Care Test Results: Test results from this visit will be discussed in further detail at your follow- up appointment, if applicable. Discharge Plan Admission Admit Date/Time: 10/21/22 00:06 Primary Reason for Your Visit: anemia Attending Provider: aHrvinder Meng Primary Care Provider: Reina Blackwell NP Consulting Providers: Joby Helms Discharge Orders/Prescriptions Prescriptions: New acetaminophen 500 mg Tablet 1,000 mg PO Q8H PRN PRN (Reason: Pain 1-10 Or Fever) Qty: 30 0RF cyanocobalamin (vitamin B-12) 500 mcg Tablet 1,000 mcg PO BREAKFAST Qty: 30 0RF potassium chloride [Klor-Con M20] 20 mEq Tablet,Er Particles/Crystals 40 meq PO BIDCM Qty: 6 0RF ferrous sulfate 325 mg (65 mg iron) tablet 325 mg PO DAILY Qty: 30 0RF Continued levothyroxine 112 mcg tablet 112 mcg PO DAILY Qty: 90 0RF Referrals / Follow Up: Ritesh Slaughter DO [Med Staff - Active Staff] - Within 1 Month Reina Blackwell NP, MEDICAL TRANSCRIPTION-C [Primary Care Provider] - Within 2 Weeks Disposition Disposition (needs filled in before D/C Order can be placed): Home, Self Care
--- NOTE | 2022-10-22 14:50 | DS.PCM_ITS ---
Providers Date of Admission: 10/21/22 Primary Care Physician: ALCON Camacho Consultations 10/21/22 10:54 Consult: Gastroenterology Routine Consulting Provider: Aly [facility] Reason for Consult: anemia EMERGENT Consult: No MD Notified: Yes Date Notified: 10/21/22 Time Notified: 10:54 Method of Notification: Text Reason For Visit: ANEMIA Diagnosis Discharge Diagnosis (1) Anemia: Status: Acute Code(s): D64.9 - Anemia, unspecified Qualifiers: Anemia type: iron deficiency Iron deficiency anemia type: chronic blood loss Qualified Code(s): D50.0 - Iron deficiency anemia secondary to blood loss (chronic) Plan: Improved after transfusion of 2 units packed red blood cell microcytic anemia Etiology is unknown at this time. Iron low at 10. We will give IV iron. Patient will be on oral iron upon di scharge. B12 low will give 1000 mcg of B12, patient requesting to be give p.o. rather than IM. EGD and colonoscopy were unremarkable there was concern of possible celiac disease. Biopsies performed. May benefit from capsule endoscopy but they will be performed as outpatient. Patient need to follow-up with gastroenterology. Continue with ferrous sulfate and B12 replacements (2) Hypothyroidism: Status: Acute Code(s): E03.9 - Hypothyroidism, unspecified Plan: Hypothyroidism TSH in outpatient lab was 0.18. Free T4 was 1.34 which is normal. Continue with the levothyroxine at the current dose. (3) Hypokalemia: Status: Acute Code(s): E87.6 - Hypokalemia Plan: Continue with 3 more days of replacement. Magnesium has been normal. This could be just due to nutritional deficiency. Plan DVT prophylaxis: Low risk. Encourage to ambulate. 10/21: Discussed with the patient about performing endoscopy inpatient versus outpatient. I told her that likely the anemia has been chronic and not acute as she is fairly asymptomatic other than some general fatigue. If she would wish to do it outpatient would likely be more protracted perhaps lasting weeks to months. I did encourage her to have it done while she was here. She and her discussed and eventually agreed to have it done here. Medications at Discharge Home Medications levothyroxine 112 mcg tablet 112 mcg PO DAILY #90 tabs 06/01/22 acetaminophen 500 mg tablet 1,000 mg PO Q8H PRN PRN Pain 1-10 Or Fever #30 tabs 10/22/22 cyanocobalamin (vitamin B-12) 500 mcg tablet 1,000 mcg PO BREAKFAST #30 tabs 10/22/22 ferrous sulfate 325 mg (65 mg iron) tablet 325 mg PO DAILY #30 tabs 10/22/22 potassium chloride 20 mEq tablet,extended release(part/cryst) (Klor-Con M) 40 meq PO BIDCM #6 tabs 10/22/22 Hospital Course Operations None Procedures Colonoscopy Summary of Care Provided Minutes Spent on Discharge: 28 Hospital Course: 32-year-old female presents with anemia. Patient's hemoglobin was noted to be 5.7. Patient was transfused 2 units packed red blood cells and hemoglobin is now 9.4. Patient underwent EGD and colonoscopy that showed no acute process but concern for possible celiac disease. Studies been performed and will need to be followed up. Patient may need a capsule endoscopy without need to be establish as outpatient. Patient did have low B12 as well as iron and will be on replacements for both. Weight / BMI Weight Weight: 55.2 kg Body Mass Index (BMI) 19.1 ABG / Lab / Microbiology Data Result Diagrams: 10/22/22 05:30 10/22/22 05:30 Laboratory: Laboratory Results - last 24 hr 10/20/22 22:30: Diff Path Review Reviewed 10/21/22 00:55: Haptoglobin 90 10/22/22 01:15: Urine Test Negative 10/22/22 05:30: WBC 3.4 L, RBC 4.88, Hgb 9.4 L, Hct 33.3 L, MCV 68.2 L D, MCH 19.3 L, MCHC 28.2 L D, RDW Std Deviation 59.6 H, RDW Coeff of Dann 25.0 H, Plt Count 212, MPV 9.6, Immature Gran % (Auto) 0.300, Neut % (Auto) 50.1, Lymph % (Auto) 31.5, [place] % (Auto) 14.6 H, Eos % (Auto) 2.6, Baso % (Auto) 0.9, Absolute Neuts (auto) 1.7 L, Absolute Lymphs (auto) 1.08, Nucleated RBC % 0, Differential Comment SCANNED, Anisocytosis 2+, Microcytosis 2+ 10/22/22 05:30: Sodium 140, Potassium 3.3 L, Chloride 108 H, Carbon Dioxide 27.0, Anion Gap 5, BUN 9, Creatinine 0.67, Estim Creat Clear Calc 103.10, Est GFR (MDRD) Af Amer 128, Est GFR (MDRD) Non-Af 106, BUN/Creatinine Ratio 13.4, Glucose 97, Calcium 9.5, Magnesium 2.5, TSH 1.19 10/22/22 05:30: PT 15.1 H, INR 1.2, APTT 36.5 H D/C Instructions Discharge Diet: No restrictions Meaningful Use Info Meaningful Use Diagnoses (Choose all that apply): None applicable Discharge Plan Admission Admit Date/Time: 10/21/22 00:06 Primary Reason for Your Visit: anemia Attending Provider: Harvinder Meng Primary Care Provider: Reina Blackwell NP Consulting Providers: Joby Helms Discharge Orders/Prescriptions Prescriptions: New acetaminophen 500 mg Tablet 1,000 mg PO Q8H PRN PRN (Reason: Pain 1-10 Or Fever) Qty: 30 0RF cyanocobalamin (vitamin B-12) 500 mcg Tablet 1,000 mcg PO BREAKFAST Qty: 30 0RF potassium chloride [Klor-Con M20] 20 mEq Tablet,Er Particles/Crystals 40 meq PO BIDCM Qty: 6 0RF ferrous sulfate 325 mg (65 mg iron) tablet 325 mg PO DAILY Qty: 30 0RF Continued levothyroxine 112 mcg tablet 112 mcg PO DAILY Qty: 90 0RF Referrals / Follow Up: Ritesh Slaughter DO [Med Staff - Active Staff] - Within 1 Month Reina Blackwell NP, YOUTH SERVICES LIBRARIAN-C [Primary Care Provider] - Within 2 Weeks Disposition Disposition (needs filled in before D/C Order can be placed): Home, Self Care Charges/Coding Visit Charges Inpatient E&M: 90998 Disch Hosp
--- NOTE | 2022-10-22 15:57 | NURSING ---
Pt given flyer for new PCP per pt request.
[2022-10-26 04:07] LABS: Immunoglobulin A 94 mg/dL (87-352); Immunoglobulin E 38 IU/mL (6-495); Immunoglobulin G 959 mg/dL (586-1602); Immunoglobulin M 159 mg/dL (26-217)
[2022-10-26 16:36] LABS: t-Transglutaminase IgA <2 U/mL (0-3)
== END 2022-10-22 16:08 | disposition home or self-care (01) | DRG 812 ==
LOC: ED 23:58 → PCU 10-21 00:33
PROVIDERS: Anesthesiology; Internal Medicine Gastroenterology; Admitting Provider Hospitalist; Emergency Provider Emergency Medicine; PCP Nurse Practitioner
PROC: 0DJD8ZZ Inspection of Lower Intestinal Tract, Via Natural or Artificial Opening Endoscopic (ICD-10-PCS; CPT 45378; principal; 2022-10-22 10:55)
DX: D50.0 Iron deficiency anemia secondary to blood loss (chronic) (principal); E03.9 Hypothyroidism, unspecified; E87.6 Hypokalemia; K90.0 Celiac disease; Z79.890 Hormone replacement therapy; Z87.891 Personal history of nicotine dependence
CPT/HCPCS: 36415; 80048; 81025; 82607; 82746; 82784; 82785; 83010; 83516; 83540; 83550; 83615; 83735; 84439; 84443; 85014; 85018; 85025; 85027; 85045; 85610; 85730; 86850; 86900; 86901; 86920; 86922; 88305; 99284; J7040; J7050; J7120; P9016; A4216; J2405; J2916

== ENCOUNTER → 2022-10-20 | Outpatient (CLI) | payer OTHER, SELFPAY ==
[2022-10-20 21:48] LABS: Hematocrit 24.5 % (37-47); Mean Corp Hgb Conc 23.3 g/dL (32-36); Mean Corpuscular Hgb 14.9 pg (27.0-32.0); POSITIVE COUNT YES; POSITIVE MORPHOLOGY YES; Platelet Count 219 K/mm3 (150-450); RBC Distribution Width CV 20.5 % (11.6-14.6); RBC Distribution Width SD 46.7 fl (35.1-43.9); Red Blood Count 3.83 M/mm3 (4.2-5.4); White Blood Count 2.7 K/mm3 (4.4-11.0)
[2022-10-20 22:05] LABS: Thyroid Stim Hormone (TSH) 0.18 uIU/mL (0.358-3.74)
[2022-10-20 22:11] LABS: Scan Indicated on CBC? Y/N YES- FLAGS NOTED
[2022-10-20 22:12] LABS: Hemoglobin 5.7 g/dL (12.0-15.0)
[2022-10-22 09:37] LABS: Pathologist Review Reviewed
== END | disposition home or self-care (01) ==
PROVIDERS: Visit Provider Nurse Practitioner
DX: E03.9 Hypothyroidism, unspecified (principal); D64.9 Anemia, unspecified
CPT/HCPCS: 84443; 85027

== ENCOUNTER → 2022-10-29 | Outpatient (CLI) | payer OTHER, SELFPAY ==
[2022-10-29 22:02] LABS: Absolute Lymphocyte Count 1.12 X10^3/uL (0.83-4.51); Absolute Neutrophil Count 3.2 X10^3/uL (2.0-7.7); Basophil# 0.03 X10^3/uL; Basophil% 0.6 % (0-1); Eosinophil# 0.12 X10^3/uL; Eosinophils% 2.5 % (0-5); Hematocrit 33.4 % (37-47); Hemoglobin 9.9 g/dL (12.0-15.0); Lymphocyte # 1.12 X10^3/ul (0.83-4.51); Lymphocyte % 23.1 % (19-41); Mean Corp Hgb Conc 29.6 g/dL (32-36); Mean Corpuscular Hgb 21.3 pg (27.0-32.0); Mean Corpuscular Volume 71.8 fL (81-99); Monocyte# 0.35 X10^3/uL; Monocyte% 7.2 % (0-10); NRBC Flagged by Analyzer 0 % (0-5); Neutrophil # 3.21 X10^3/uL (2.7-7.7); Neutrophil % 66.4 % (47-70); POSITIVE MORPHOLOGY YES; Platelet Count 218 K/mm3 (150-450); RBC Distribution Width SD 70.9 fl (35.1-43.9); Red Blood Count 4.65 M/mm3 (4.2-5.4); White Blood Count 4.8 K/mm3 (4.4-11.0)
[2022-10-29 22:04] LABS: Differential Indicated SCAN CRITERIA MET
[2022-10-29 22:17] LABS: ALB/GLOB Ratio 1.3 RATIO (0.9-2.4); AST(SGOT) 19 U/L (15-37); Alanine Aminotransfer ALT/SGPT 20 U/L (13-56); Albumin, Serum 4.2 g/dL (3.2-5.0); Alkaline Phosphatase 56 U/L (45-117); Anion Gap 7 (5-15); BUN 10 mg/dL (7-18); BUN/Creat Ratio 15.7 RATIO (10-20); Calcium,Total 8.6 mg/dL (8.5-10.1); Chloride 110 mmol/L (98-107); Creatinine, Serum 0.64 mg/dL (0.55-1.02); EST Glomerular Filtration Rate 113 mL/min (>60); Est Glom Filt Rate - Afr Amer 137 mL/min (>60); Globulin 3.3 g/dL (2.2-4.2); Glucose 147 mg/dL (74-106); Potassium 3.5 mmol/L (3.5-5.1); Protein, Total 7.5 g/dL (6.4-8.2); Sodium Level 140 mmol/L (136-145); Thyroid Stim Hormone (TSH) 2.29 uIU/mL (0.358-3.74)
[2022-10-29 22:44] LABS: Anisocytosis 2+; Differential Comment SCANNED; Hypochromasia 2+; Polychromasia RARE
[2022-10-29 22:45] LABS: Crenated RBC RARE; Target Cells RARE
== END | disposition home or self-care (01) ==
PROVIDERS: PCP Nurse Practitioner; Visit Provider Nurse Practitioner
DX: E03.9 Hypothyroidism, unspecified (principal); D64.9 Anemia, unspecified
CPT/HCPCS: 80053; 84443; 85025

== ENCOUNTER → 2022-11-19 | Outpatient (CLI) | payer OTHER, SELFPAY ==
[2022-11-19 09:54] VITALS: BP 124/72; PULSE 85; RESP 16; TEMP 36.6; O2SAT 100; BMI 19.5
[2022-11-19] MEDS: 0.9% NaCl IVPB Med Flush (250 mL) 15 ML IV (10:07)
[2022-11-19] MEDS: 0.9% NaCl Peripheral Flush Adult/Peds IV (10:12)
[2022-11-19 12:05] VITALS: BP 121/72; PULSE 77; RESP 16; TEMP 36.7; O2SAT 100
== END | disposition home or self-care (01) ==
LOC: MEDOUTP 09:33
PROVIDERS: PCP Nurse Practitioner; Referring Provider Nurse Practitioner; Visit Provider Nurse Practitioner
DX: D50.0 Iron deficiency anemia secondary to blood loss (chronic) (principal)
CPT/HCPCS: 96372; J7050; A4216; J2916

== ENCOUNTER → 2022-11-22 | Outpatient (CLI) | payer OTHER, SELFPAY ==
[2022-11-22 13:30] VITALS: BP 123/73; PULSE 95; RESP 16; TEMP 36.3; O2SAT 100
[2022-11-22] MEDS: 0.9% NaCl Peripheral Flush Adult/Peds IV (13:32)
[2022-11-22] MEDS: 0.9% NaCl IVPB Med Flush (250 mL) 15 ML IV (13:43)
[2022-11-22 15:16] VITALS: BP 119/78; PULSE 83; RESP 16
== END | disposition home or self-care (01) ==
LOC: MEDOUTP 13:25
PROVIDERS: PCP Nurse Practitioner; Referring Provider Nurse Practitioner; Visit Provider Nurse Practitioner
DX: D50.0 Iron deficiency anemia secondary to blood loss (chronic) (principal)
CPT/HCPCS: 96365; J7050; A4216; J2916

== ENCOUNTER → 2022-11-26 | Outpatient (CLI) | payer OTHER, SELFPAY ==
[2022-11-26 10:16] VITALS: BP 126/77; PULSE 104; RESP 16; TEMP 36.9; O2SAT 99
[2022-11-26] MEDS: 0.9% NaCl Peripheral Flush Adult/Peds IV ×2 (10:34→12:10)
[2022-11-26] MEDS: 0.9% NaCl IVPB Med Flush (250 mL) 15 ML IV (10:34)
[2022-11-26 12:11] VITALS: BP 121/74; PULSE 94; RESP 16; TEMP 36.9; O2SAT 98
[2022-11-26 12:22] LABS: Absolute Lymphocyte Count 1.18 X10^3/uL (0.83-4.51); Absolute Neutrophil Count 2.8 X10^3/uL (2.0-7.7); Basophil# 0.03 X10^3/uL; Basophil% 0.7 % (0-1); Eosinophil# 0.09 X10^3/uL; Hematocrit 36.9 % (37-47); Hemoglobin 11.2 g/dL (12.0-15.0); Lymphocyte # 1.18 X10^3/ul (0.83-4.51); Lymphocyte % 26.4 % (19-41); Mean Corp Hgb Conc 30.4 g/dL (32-36); Mean Corpuscular Volume 82.4 fL (81-99); Mean Platelet Vol. 9.3 fl (6.2-12.0); Monocyte# 0.34 X10^3/uL; Monocyte% 7.6 % (0-10); NRBC Flagged by Analyzer 0 % (0-5); Neutrophil # 2.82 X10^3/uL (2.7-7.7); Neutrophil % 63.1 % (47-70); POSITIVE MORPHOLOGY YES; Platelet Count 161 K/mm3 (150-450); Red Blood Count 4.48 M/mm3 (4.2-5.4); White Blood Count 4.5 K/mm3 (4.4-11.0)
[2022-11-26 12:24] LABS: Differential Indicated SCAN CRITERIA MET
[2022-11-26 12:54] LABS: T4 Free Direct 0.71 ng/dL (0.76-1.46); Thyroid Stim Hormone (TSH) 6.33 uIU/mL (0.358-3.74)
== END | disposition home or self-care (01) ==
LOC: MEDOUTP 09:49
PROVIDERS: PCP Nurse Practitioner; Referring Provider Nurse Practitioner; Visit Provider Nurse Practitioner
DX: D50.0 Iron deficiency anemia secondary to blood loss (chronic) (principal); E03.9 Hypothyroidism, unspecified
CPT/HCPCS: 96365; 96366; 36415; 84439; 84443; 85025; J7050; A4216; J2916

== ENCOUNTER → 2022-11-29 | Outpatient (CLI) | payer OTHER, SELFPAY ==
[2022-11-29 08:49] VITALS: BP 117/72; PULSE 88; RESP 14; TEMP 37.2; O2SAT 100; BMI 19.5
[2022-11-29] MEDS: 0.9% NaCl IVPB Med Flush (250 mL) 15 ML IV (09:01)
[2022-11-29 10:22] VITALS: BP 111/73; PULSE 93; RESP 14; TEMP 37.2; O2SAT 99
== END | disposition home or self-care (01) ==
LOC: MEDOUTP 08:31
PROVIDERS: PCP Nurse Practitioner; Referring Provider Nurse Practitioner; Visit Provider Nurse Practitioner
DX: D50.0 Iron deficiency anemia secondary to blood loss (chronic) (principal)
CPT/HCPCS: 96365; J7050; A4216; J2916

== ENCOUNTER → 2022-12-03 | Outpatient (CLI) | payer OTHER, SELFPAY ==
[2022-12-03] MEDS: 0.9% NaCl Peripheral Flush Adult/Peds IV (10:32)
[2022-12-03] MEDS: 0.9% NaCl IVPB Med Flush (250 mL) 15 ML IV (10:32)
[2022-12-03 12:12] VITALS: BP 131/70; PULSE 94; RESP 16
== END | disposition home or self-care (01) ==
LOC: MEDOUTP 09:57
PROVIDERS: PCP Nurse Practitioner; Referring Provider Nurse Practitioner; Visit Provider Nurse Practitioner
DX: D50.0 Iron deficiency anemia secondary to blood loss (chronic) (principal)
CPT/HCPCS: 96365; 96366; J7050; A4216; J2916

== ENCOUNTER → 2023-02-14 | Outpatient (CLI) | payer OTHER, SELFPAY ==
--- NOTE | 2023-02-14 | CER_PTH ---
PATIENT: NANCY BLACKWELL [facility] U#:[id number] AGE/SX: 32/F ROOM: RE02/14/[address]: Maria R Kemp CNM : 1990 BED: DIS: 02/14/2023 SPEC #: [id number] RECD: 02/14/23 13:00 STATUS: CHRISTIAN EMILY #: [id number] JOAO: 02/14/23 00:[address]: Maria R Kemp DEPT: SURGICAL PATHOLOGY RECD BY: Krista Andino ENTERED: 02/14/23 13:42 SP TYPE: CERV OTHR DR: Reina Blackwell, CLERICAL SUPERVISOR-C Tissues: Uterine cervix, NOS Procedures: Surgery Specimen Level IV HEADER OPERATION: Polypectomy PRE-OP DIAGNOSIS: Cervical polyps TISSUE SUBMITTED: Cervix MICROSCOPIC DIAGNOSIS Cervix, polypectomy: Inflamed benign mixed ecto- and endocervical polyp. ADRIANNE:regina 02/15/2023 MICROSCOPIC DESCRIPTION Slides are reviewed. GROSS DESCRIPTION Received is one container labeled with the patient's name and not further designated. The specimen consists of a hazel-pink polyp measuring 2.0 x 0.7 x 0.5 cm. The specimen is bisected and submitted entirely in one cassette. / SJ:regina 02/14/2023 TC:5 CPT: 52038
[2023-02-21 11:13] LABS: HPV APTIMA, High Risk Negative (Negative)
== END | disposition home or self-care (01) ==
LOC: LABSPEC 13:04
PROVIDERS: PCP Nurse Practitioner; Referring Provider Registered Nurse; Visit Provider Registered Nurse
DX: Z12.4 Encounter for screening for malignant neoplasm of cervix (principal); N84.1 Polyp of cervix uteri
CPT/HCPCS: 87624; 88175; 88305; G0145

== ENCOUNTER → 2023-02-22 | Outpatient (CLI) | payer OTHER, SELFPAY ==
--- NOTE | 2023-02-22 12:48 | US_ITS ---
INDICATION: heavy menstrual bleeding EXAMINATION: Ultrasound US Pelvis Non OB Complete With Transvaginal Imaging TECHNIQUE: Transabdominal and transvaginal pelvic ultrasound was performed. Grayscale, spectral waveform, and color flow Doppler evaluation of the adnexa. COMPARISON: None. FINDINGS: UTERUS: Anteverted. The uterus measures 9.7 x 5.9 x 4.4 cm. There is no uterine mass. The endometrial stripe measures 7 mm in AP diameter which is within normal limits. RIGHT OVARY: Measures 2.7 x 2.4 x 2 cm. Non-enlarged, normal echogenicity. There is normal arterial inflow and venous outflow present in the right ovary. LEFT OVARY: Measures 2.8 x 1.9 x 3.1 cm. Non-enlarged, normal echogenicity. There is normal arterial inflow and venous outflow present in the left ovary. FREE FLUID: None. US/Pelvic w/ Transvaginal IMPRESSION: Normal pelvic ultrasound. Electronically Signed: Marcial Mckeon MD at 19:43 EDT ,
== END | disposition home or self-care (01) ==
LOC: OPUS 12:46
PROVIDERS: PCP Nurse Practitioner; Referring Provider Registered Nurse; Visit Provider Registered Nurse
DX: N92.0 Excessive and frequent menstruation with regular cycle (principal)
CPT/HCPCS: 76830; 76856

== ENCOUNTER → 2023-06-14 | Outpatient (CLI) | payer OTHER, SELFPAY ==
[2023-06-14 15:00] LABS: Absolute Lymphocyte Count 1.41 X10^3/uL (0.83-4.51); Absolute Neutrophil Count 2.9 X10^3/uL (2.0-7.7); Basophil# 0.04 X10^3/uL; Basophil% 0.8 % (0-1); Hematocrit 35.3 % (37-47); Hemoglobin 10.3 g/dL (12.0-15.0); Lymphocyte # 1.41 X10^3/ul (0.83-4.51); Mean Corp Hgb Conc 29.2 g/dL (32-36); Mean Corpuscular Hgb 23.4 pg (27.0-32.0); Mean Corpuscular Volume 80.2 fL (81-99); Mean Platelet Vol. 9.8 fl (6.2-12.0); Monocyte# 0.35 X10^3/uL; Monocyte% 6.9 % (0-10); NRBC Flagged by Analyzer 0 % (0-5); Neutrophil # 2.93 X10^3/uL (2.7-7.7); Neutrophil % 58.1 % (47-70); Platelet Count 261 K/mm3 (150-450); RBC Distribution Width CV 15.4 % (11.6-14.6); RBC Distribution Width SD 45.1 fl (35.1-43.9)
== END | disposition home or self-care (01) ==
LOC: PAVLAB 14:35
PROVIDERS: PCP Family Medicine; Referring Provider Advanced Practice Midwife; Visit Provider Advanced Practice Midwife
DX: N92.0 Excessive and frequent menstruation with regular cycle (principal)
CPT/HCPCS: 36415; 85025